=== PATIENT | female | born 1985 ===

== ENCOUNTER 2022-07-28 05:59 | Day surgery (SDC) | payer OTHER | END 2022-07-28 16:05 | disposition home or self-care (01) | LOC: CIR.AMB 05:59 → AMB-ENDOS 05:59 → CIR.AMB 13:45 → AMB-ENDOS 16:05 | PROVIDERS: ATTEND Surgery | DX: D12.2 Benign neoplasm of ascending colon (principal); D12.6 Benign neoplasm of colon, unspecified; K57.90 Diverticulosis of intestine, part unspecified, without perforation or abscess without bleeding; D12.5 Benign neoplasm of sigmoid colon; I10 Essential (primary) hypertension; R19.4 Change in bowel habit; R19.5 Other fecal abnormalities; Z20.822 Contact with and (suspected) exposure to COVID-19 ==